=== PATIENT | female | born 1935 | race African-American/Black ===

== ENCOUNTER 2018-10-31 04:43 | Inpatient (IN) ==
[2018-10-31 05:28] LABS: VBG Base Excess 16.5 MEQ/L (0-4); VBG HCO3 40.6 MEQ/L (24-28); VBG PCO2 81.8 MMHG (41-51); VBG PH 7.361
[2018-10-31 05:49] LABS: Basophils % 0.4 % (0.0-0.8); Eosinophils # 0.1 10*3/uL (0.0-0.87); Eosinophils % 1.9 % (0.00-10.9); Hematocrit 37.3 VOL% (35.7-47.0); Immature Granulocytes % 0.4 %; Immature Granulocytes Absolute 0.02 #; Lymphocytes # 0.8 10*3/uL (1.4-4.0); Lymphocytes % 15.4 % (21.3-54.2); Mean Corpuscular HGB Conc 29.2 GM/DL (32-36); Mean Corpuscular Volume 91.2 FL (87-102); Mean Platelet Volume 11.4 FL (9.6-12.0); Monocytes % 5.7 % (1.7-12.7); Neutrophils % 76.2 % (38.7-73.9); Platelet Count 128 T/CUMM (130-400); Red Blood Count 4.09 MC/CUMM (3.8-5.5); Red Cell Distribution Width 16.1 % (9.3-17.3); White Blood Count 5.3 T/CUMM (4-12)
[2018-10-31 05:50] LABS: Hemoglobin 10.9 GM/DL (12.0-16.0)
[2018-10-31 05:52] LABS: Alanine Aminotransferase 16 U/L (13-56); Albumin 3.3 G/DL (3.4-5.0); Alkaline Phosphatase 72 U/L (45-117); Aspartate Amino Transferase 18 U/L (0-37); Blood Urea Nitrogen 9 MG/DL (7-18); Calcium 8.8 MG/DL (8.5-10.1); Glucose 134 MG/DL (74-106); Osmolality,Calculated 290.6 MOS/KG (273-304); Total Protein 6.9 G/DL (6.4-8.3)
[2018-10-31 05:53] LABS: Troponin I 0.074 NG/ML (0.00-0.045)
[2018-10-31] MEDS ORDERED: FUROSEMIDE 40 MG/4 ML VIAL IV STA (06:45)
[2018-10-31] MEDS ORDERED: ALBUTEROL 2.5 MG/3 ML NEB RESP TX STA (06:45)
[2018-10-31] MEDS ORDERED: ETOMIDATE 20 MG/10 ML VIAL IV ONE (06:59)
[2018-10-31] MEDS ORDERED: LEVOFLOXACIN INJ 500 MG in PREMIX 1 EACH IV STA (06:59)
[2018-10-31] MEDS ORDERED: ROCURONIUM 100 MG/10 ML VIAL IV ONE (07:00)
[2018-10-31 07:15] LABS: ABG HCO3 42.2 MMOL/L (20-26); ABG Oxygen Saturation 99.9 % (95-100); ABG PCO2 68.8 MM HG (35-48); ABG PH 7.434 (7.35-7.45); ABG TCO2 41.4 MMOL/L (23-27); Allen Test Positive; Pt O2 Delivery Device Ventilator
[2018-10-31 07:37] LABS: Apearance,Urine CLEAR (Clear); Bacteria,Urine Occasional /HPF (Few); Bilirubin,Urine Negative (Negative); Blood, Urine Negative (Negative); Glucose,Urine (UA) Negative (Negative); Ketones,Urine Negative (Negative); Nitrite,Urine Negative (Negative); Protein,Urine 100 MG/DL; RBC,Urine 4 /HPF (0-4); Squamous Epithelial Cell,Urine Occasional /HPF (0-10); Urine Color Yellow (Yellow); Urine Specific Gravity 1.015 (1.001-1.035); WBC,Urine <1 /HPF (0-6)
[2018-10-31] MEDS ORDERED: PROPOFOL 1,000 MG/100 ML BOTTLE IV ONE (07:46)
[2018-10-31] MEDS: PROPOFOL 1,000 MG/100 ML BOTTLE IV SCH ×7 (07:59→23:38)
[2018-10-31] MEDS ORDERED: MORPHINE 4 MG/1 ML VIAL IV PRN (08:23)
[2018-10-31] MEDS ORDERED: DEXTROSE 5% NACL 0.45% 1,000 ML IV SCH (08:23)
[2018-10-31] MEDS ORDERED: HYDROcod/ACETAMIN 7.5-325 MG/15 ML UDCUP PER TUBE PRN (08:23)
[2018-10-31] MEDS ORDERED: LACTULOSE 20 GM/30 ML UDCUP PER TUBE PRN (08:23)
[2018-10-31] MEDS ORDERED: ONDANSETRON 4 MG/2 ML VIAL IV PRN (08:23)
[2018-10-31] MEDS: APIXABAN 5 MG TABLET PER TUBE SCH ×2 (09:27→20:45)
[2018-10-31] MEDS: METOPROLOL TARTRATE 50 MG TABLET PER TUBE SCH ×2 (09:27→09:41)
[2018-10-31] MEDS: SACUBITRIL/VALSARTAN 49-51 MG TABLET PO SCH ×2 (09:27→20:45)
[2018-10-31] MEDS: FAMOTIDINE 20 MG/2 ML VIAL IV SCH ×2 (09:27→20:45)
[2018-10-31] MEDS: FUROSEMIDE 40 MG/4 ML VIAL IV SCH ×2 (09:27→15:49)
[2018-10-31] MEDS: ALLOPURINOL 300 MG TABLET PER TUBE SCH (09:28)
[2018-10-31 11:15] LABS: ABG Base Excess 19.4 MMOL/L (-2.5-2.5); ABG HCO3 43.7 MMOL/L (20-26); ABG Oxygen Saturation 97.4 % (95-100); ABG PCO2 47.9 MM HG (35-48); ABG PH 7.576 (7.35-7.45); ABG PO2 72.3 MM HG (80-95); ABG TCO2 39.8 MMOL/L (23-27); Pt O2 Delivery Device Ventilator
[2018-10-31] MEDS: POTASSIUM CHLORIDE 20 MEQ/15 ML UDCUP PER TUBE SCH ×3 (11:15→23:09)
[2018-10-31] MEDS: VANCOMYCIN INJ 2,000 MG in SODIUM CHLORIDE 0.9% 500 ML IV SCH ×2 (11:59→23:00)
[2018-10-31 12:36] LABS: ABG Base Excess 19.6 MMOL/L (-2.5-2.5); ABG Oxygen Saturation 99.2 % (95-100); ABG PCO2 55.1 MM HG (35-48); ABG PH 7.527 (7.35-7.45); ABG TCO2 41.2 MMOL/L (23-27); Pt O2 Delivery Device Ventilator
[2018-10-31] MEDS: ALBUTEROL/IPRATROPIUM 3 ML NEB RESP TX SCH ×2 (12:36→20:23)
[2018-10-31 16:18] LABS: ABG Base Excess 17.8 MMOL/L (-2.5-2.5); ABG Oxygen Saturation 98.6 % (95-100); ABG PCO2 57.8 MM HG (35-48); ABG PH 7.493 (7.35-7.45); ABG TCO2 39.7 MMOL/L (23-27); Pt O2 Delivery Device Ventilator
[2018-10-31] MEDS: BUDESONIDE 0.5 MG/2 ML NEB RESP TX SCH (20:23)
[2018-10-31] MEDS: METOPROLOL TARTRATE 25 MG TABLET PER TUBE SCH (20:46)
[2018-11-01] MEDS: ALBUTEROL/IPRATROPIUM 3 ML NEB RESP TX SCH ×4 (00:24→19:15)
[2018-11-01] MEDS: PROPOFOL 1,000 MG/100 ML BOTTLE IV SCH ×8 (02:20→22:46)
[2018-11-01 03:31] LABS: ABG Base Excess 16.4 MMOL/L (-2.5-2.5); ABG HCO3 40.5 MMOL/L (20-26); ABG Oxygen Saturation 98.6 % (95-100); ABG PCO2 55.8 MM HG (35-48); ABG PH 7.492 (7.35-7.45); ABG PO2 99.4 MM HG (80-95); ABG TCO2 38.2 MMOL/L (23-27); Allen Test Positive; Pt O2 Delivery Device Ventilator
[2018-11-01 04:31] LABS: Basophils % 0.7 % (0.0-0.8); Eosinophils # 0.1 10*3/uL (0.0-0.87); Eosinophils % 2.7 % (0.00-10.9); Hematocrit 33.2 VOL% (35.7-47.0); Hemoglobin 10.2 GM/DL (12.0-16.0); Immature Granulocytes % 0.5 %; Immature Granulocytes Absolute 0.02 #; Lymphocytes # 0.9 10*3/uL (1.4-4.0); Lymphocytes % 20.7 % (21.3-54.2); Mean Corpuscular HGB Conc 30.7 GM/DL (32-36); Mean Corpuscular Volume 86.5 FL (87-102); Mean Platelet Volume 10.8 FL (9.6-12.0); Monocytes % 5.6 % (1.7-12.7); Neutrophils % 69.8 % (38.7-73.9); Platelet Count 121 T/CUMM (130-400); Red Blood Count 3.84 MC/CUMM (3.8-5.5); White Blood Count 4.1 T/CUMM (4-12)
[2018-11-01 04:53] LABS: Calcium 8.7 MG/DL (8.5-10.1); Osmolality,Calculated 286.7 MOS/KG (273-304)
[2018-11-01 04:54] LABS: Troponin I 0.177 NG/ML (0.00-0.045)
[2018-11-01] MEDS: POTASSIUM CHLORIDE 20 MEQ/15 ML UDCUP PER TUBE SCH ×4 (05:25→23:18)
[2018-11-01] MEDS: BUDESONIDE 0.5 MG/2 ML NEB RESP TX SCH ×2 (07:38→19:15)
[2018-11-01] MEDS: FUROSEMIDE 40 MG/4 ML VIAL IV SCH ×2 (09:19→16:58)
[2018-11-01] MEDS: FAMOTIDINE 20 MG/2 ML VIAL IV SCH ×2 (09:24→20:23)
[2018-11-01] MEDS: METOPROLOL TARTRATE 25 MG TABLET PER TUBE SCH ×2 (09:25→20:22)
[2018-11-01] MEDS: APIXABAN 5 MG TABLET PER TUBE SCH ×2 (09:25→20:22)
[2018-11-01] MEDS: ALLOPURINOL 300 MG TABLET PER TUBE SCH (09:25)
[2018-11-01] MEDS: LEVOFLOXACIN INJ 750 MG in PREMIX 1 EACH IV SCH (09:29)
[2018-11-01] MEDS: SACUBITRIL/VALSARTAN 49-51 MG TABLET PO SCH ×2 (09:30→20:22)
[2018-11-01] MEDS: VANCOMYCIN INJ 2,000 MG in SODIUM CHLORIDE 0.9% 500 ML IV SCH ×2 (11:08→23:19)
[2018-11-02] MEDS: ALBUTEROL/IPRATROPIUM 3 ML NEB RESP TX SCH ×4 (01:38→19:10)
[2018-11-02] MEDS: PROPOFOL 1,000 MG/100 ML BOTTLE IV SCH ×7 (01:40→20:25)
[2018-11-02 02:55] LABS: Basophils % 0.2 % (0.0-0.8); Eosinophils # 0.2 10*3/uL (0.0-0.87); Eosinophils % 4.2 % (0.00-10.9); Hematocrit 33.3 VOL% (35.7-47.0); Hemoglobin 10.2 GM/DL (12.0-16.0); Immature Granulocytes % 0.6 %; Immature Granulocytes Absolute 0.03 #; Lymphocytes # 0.7 10*3/uL (1.4-4.0); Lymphocytes % 14.7 % (21.3-54.2); Mean Corpuscular HGB Conc 30.6 GM/DL (32-36); Mean Platelet Volume 11.2 FL (9.6-12.0); Monocytes % 5.7 % (1.7-12.7); Neutrophils % 74.6 % (38.7-73.9); Platelet Count 131 T/CUMM (130-400); Red Blood Count 3.87 MC/CUMM (3.8-5.5); Red Cell Distribution Width 16.2 % (9.3-17.3); White Blood Count 4.8 T/CUMM (4-12)
[2018-11-02 03:10] LABS: Osmolality,Calculated 286.8 MOS/KG (273-304)
[2018-11-02 03:38] LABS: ABG Base Excess 12.5 MMOL/L (-2.5-2.5); ABG HCO3 36.3 MMOL/L (20-26); ABG Oxygen Saturation 97.8 % (95-100); ABG PCO2 49.5 MM HG (35-48); ABG PO2 89.8 MM HG (80-95); ABG TCO2 33.8 MMOL/L (23-27); Allen Test Positive; Pt O2 Delivery Device Ventilator
[2018-11-02] MEDS: POTASSIUM CHLORIDE 20 MEQ/15 ML UDCUP PER TUBE SCH ×3 (06:00→18:15)
[2018-11-02] MEDS: APIXABAN 5 MG TABLET PER TUBE SCH ×2 (08:55→21:34)
[2018-11-02] MEDS: METOPROLOL TARTRATE 25 MG TABLET PER TUBE SCH ×2 (08:55→21:35)
[2018-11-02] MEDS: LEVOFLOXACIN INJ 750 MG in PREMIX 1 EACH IV SCH (08:55)
[2018-11-02] MEDS: FUROSEMIDE 40 MG/4 ML VIAL IV SCH ×2 (08:55→16:11)
[2018-11-02] MEDS: SACUBITRIL/VALSARTAN 49-51 MG TABLET PO SCH ×2 (08:55→21:34)
[2018-11-02] MEDS: FAMOTIDINE 20 MG/2 ML VIAL IV SCH ×2 (08:56→21:35)
[2018-11-02] MEDS: ALLOPURINOL 300 MG TABLET PER TUBE SCH (08:56)
[2018-11-02] MEDS ORDERED: DEXTROSE 50% 25 GM/50 ML SYRINGE IV PRN (11:30)
[2018-11-02] MEDS ORDERED: GLUCAGON 1 MG VIAL IM PRN (11:30)
[2018-11-02] MEDS: INSULIN REGULAR 100 UNIT/ML SUBCUT SCH ×2 (11:41→18:29)
[2018-11-02] MEDS: BUDESONIDE 0.5 MG/2 ML NEB RESP TX SCH ×2 (13:00→19:10)
[2018-11-02] MEDS: VANCOMYCIN INJ 2,000 MG in SODIUM CHLORIDE 0.9% 500 ML IV SCH (13:24)
[2018-11-02] MEDS ORDERED: NIFEdipine 10 MG CAPSULE PO PRN (15:29)
[2018-11-02] MEDS ORDERED: cloNIDine 0.3 MG/24 HR PATCH TRANSDERM SCH (15:30)
[2018-11-03] MEDS: POTASSIUM CHLORIDE 20 MEQ/15 ML UDCUP PER TUBE SCH ×8 (00:02→23:12)
[2018-11-03] MEDS: INSULIN REGULAR 100 UNIT/ML SUBCUT SCH ×5 (00:35→23:12)
[2018-11-03] MEDS: ALBUTEROL/IPRATROPIUM 3 ML NEB RESP TX SCH ×4 (01:15→19:29)
[2018-11-03] MEDS: PROPOFOL 1,000 MG/100 ML BOTTLE IV SCH ×8 (03:45→22:59)
[2018-11-03 04:26] LABS: ABG Base Excess 10.8 MMOL/L (-2.5-2.5); ABG HCO3 33.6 MMOL/L (20-26); ABG Oxygen Saturation 96.7 % (95-100); ABG PCO2 37.4 MM HG (35-48); ABG PH 7.571 (7.35-7.45); ABG PO2 83.9 MM HG (80-95); ABG TCO2 34.7 MMOL/L (23-27); Allen Test Positive; Pt O2 Delivery Device Ventilator
[2018-11-03 05:31] LABS: Basophils % 0.2 % (0.0-0.8); Eosinophils # 0.2 10*3/uL (0.0-0.87); Eosinophils % 3.1 % (0.00-10.9); Hematocrit 31.2 VOL% (35.7-47.0); Hemoglobin 10.2 GM/DL (12.0-16.0); Immature Granulocytes % 0.6 %; Immature Granulocytes Absolute 0.03 #; Lymphocytes # 1.1 10*3/uL (1.4-4.0); Lymphocytes % 20.6 % (21.3-54.2); Mean Corpuscular HGB Conc 32.7 GM/DL (32-36); Mean Corpuscular Volume 82.8 FL (87-102); Mean Platelet Volume 11.5 FL (9.6-12.0); Monocytes % 6.6 % (1.7-12.7); Neutrophils % 68.9 % (38.7-73.9); Platelet Count 133 T/CUMM (130-400); Red Blood Count 3.77 MC/CUMM (3.8-5.5); Red Cell Distribution Width 15.5 % (9.3-17.3); White Blood Count 5.2 T/CUMM (4-12)
[2018-11-03 05:45] LABS: Calcium 8.5 MG/DL (8.5-10.1); Osmolality,Calculated 286.8 MOS/KG (273-304)
[2018-11-03 05:50] LABS: Prealbumin 9.5 MG/DL (20-40)
[2018-11-03] MEDS: BUDESONIDE 0.5 MG/2 ML NEB RESP TX SCH ×2 (07:06→19:29)
[2018-11-03] MEDS: APIXABAN 5 MG TABLET PER TUBE SCH ×2 (08:40→20:11)
[2018-11-03] MEDS: SACUBITRIL/VALSARTAN 49-51 MG TABLET PO SCH ×2 (08:40→20:11)
[2018-11-03] MEDS: METOPROLOL TARTRATE 25 MG TABLET PER TUBE SCH ×2 (08:40→20:11)
[2018-11-03] MEDS: ALLOPURINOL 300 MG TABLET PER TUBE SCH (08:40)
[2018-11-03] MEDS: FUROSEMIDE 40 MG/4 ML VIAL IV SCH ×2 (08:41→17:22)
[2018-11-03] MEDS: LEVOFLOXACIN INJ 750 MG in PREMIX 1 EACH IV SCH (08:45)
[2018-11-03] MEDS: FAMOTIDINE 20 MG/2 ML VIAL IV SCH ×2 (09:40→20:11)
[2018-11-04] MEDS: ALBUTEROL/IPRATROPIUM 3 ML NEB RESP TX SCH ×4 (00:52→19:05)
[2018-11-04] MEDS: PROPOFOL 1,000 MG/100 ML BOTTLE IV SCH ×7 (02:33→23:21)
[2018-11-04 03:54] LABS: Calcium 8.3 MG/DL (8.5-10.1); Osmolality,Calculated 288.8 MOS/KG (273-304)
[2018-11-04 04:20] LABS: Basophils % 0.4 % (0.0-0.8); Eosinophils # 0.3 10*3/uL (0.0-0.87); Eosinophils % 5.4 % (0.00-10.9); Hematocrit 32.8 VOL% (35.7-47.0); Hemoglobin 10.4 GM/DL (12.0-16.0); Immature Granulocytes % 0.6 %; Immature Granulocytes Absolute 0.03 #; Lymphocytes # 0.8 10*3/uL (1.4-4.0); Lymphocytes % 16.5 % (21.3-54.2); Mean Corpuscular HGB Conc 31.7 GM/DL (32-36); Mean Corpuscular Volume 84.5 FL (87-102); Mean Platelet Volume 11.5 FL (9.6-12.0); Monocytes % 8.6 % (1.7-12.7); Neutrophils % 68.5 % (38.7-73.9); Platelet Count 129 T/CUMM (130-400); Red Blood Count 3.88 MC/CUMM (3.8-5.5); Red Cell Distribution Width 15.8 % (9.3-17.3)
[2018-11-04 04:35] LABS: Allen Test Positive; Pt O2 Delivery Device Ventilator
[2018-11-04 04:36] LABS: ABG Base Excess 7.6 MMOL/L (-2.5-2.5); ABG HCO3 31.3 MMOL/L (20-26); ABG Oxygen Saturation 96.6 % (95-100); ABG PCO2 52.1 MM HG (35-48); ABG PH 7.417 (7.35-7.45); ABG PO2 85.2 MM HG (80-95); ABG TCO2 30.1 MMOL/L (23-27)
[2018-11-04] MEDS: INSULIN REGULAR 100 UNIT/ML SUBCUT SCH ×3 (05:20→17:51)
[2018-11-04] MEDS: POTASSIUM CHLORIDE 20 MEQ/15 ML UDCUP PER TUBE SCH ×3 (05:29→17:07)
[2018-11-04] MEDS: LEVOFLOXACIN 750 MG TABLET PER TUBE SCH (08:12)
[2018-11-04] MEDS: SACUBITRIL/VALSARTAN 49-51 MG TABLET PO SCH ×2 (08:12→21:00)
[2018-11-04] MEDS: METOPROLOL TARTRATE 25 MG TABLET PER TUBE SCH ×2 (08:13→20:54)
[2018-11-04] MEDS: APIXABAN 5 MG TABLET PER TUBE SCH ×2 (08:13→21:00)
[2018-11-04] MEDS: ALLOPURINOL 300 MG TABLET PER TUBE SCH (08:13)
[2018-11-04] MEDS: FAMOTIDINE 20 MG/2 ML VIAL IV SCH ×2 (08:14→22:09)
[2018-11-04] MEDS: FUROSEMIDE 40 MG/4 ML VIAL IV SCH ×2 (08:19→17:07)
[2018-11-04] MEDS: BUDESONIDE 0.5 MG/2 ML NEB RESP TX SCH ×2 (08:23→19:05)
[2018-11-04] MEDS ORDERED: VANCOMYCIN INJ 1,000 MG in SODIUM CHLORIDE 0.9% 250 ML IV PRN (11:38)
[2018-11-04] MEDS ORDERED: VANCOMYCIN INJ 1,000 MG in SODIUM CHLORIDE 0.9% 250 ML IV ONE (12:00)
[2018-11-04] MEDS ORDERED: NOREPINEPHRINE 16 MG in SODIUM CHLORIDE 0.9% 234 ML IV PRN (19:49)
[2018-11-05] MEDS: INSULIN REGULAR 100 UNIT/ML SUBCUT SCH ×4 (00:27→18:33)
[2018-11-05] MEDS: ALBUTEROL/IPRATROPIUM 3 ML NEB RESP TX SCH ×4 (00:38→20:21)
[2018-11-05] MEDS: POTASSIUM CHLORIDE 20 MEQ/15 ML UDCUP PER TUBE SCH ×4 (00:47→19:23)
[2018-11-05] MEDS: PROPOFOL 1,000 MG/100 ML BOTTLE IV SCH ×5 (03:56→21:42)
[2018-11-05 04:09] LABS: ABG Base Excess 6.3 MMOL/L (-2.5-2.5); ABG HCO3 30.2 MMOL/L (20-26); ABG Oxygen Saturation 97.8 % (95-100); ABG PCO2 55.1 MM HG (35-48); ABG PH 7.385 (7.35-7.45); ABG TCO2 29.5 MMOL/L (23-27); Allen Test Positive; Pt O2 Delivery Device Ventilator
[2018-11-05 04:39] LABS: Basophils % 0.3 % (0.0-0.8); Eosinophils # 0.2 10*3/uL (0.0-0.87); Eosinophils % 3.1 % (0.00-10.9); Hematocrit 34.9 VOL% (35.7-47.0); Hemoglobin 10.9 GM/DL (12.0-16.0); Immature Granulocytes % 0.3 %; Immature Granulocytes Absolute 0.02 #; Lymphocytes # 0.7 10*3/uL (1.4-4.0); Lymphocytes % 11.4 % (21.3-54.2); Mean Corpuscular HGB Conc 31.2 GM/DL (32-36); Mean Corpuscular Volume 84.1 FL (87-102); Mean Platelet Volume 11.1 FL (9.6-12.0); Monocytes % 7.5 % (1.7-12.7); Neutrophils % 77.4 % (38.7-73.9); Platelet Count 139 T/CUMM (130-400); Red Blood Count 4.15 MC/CUMM (3.8-5.5); Red Cell Distribution Width 15.8 % (9.3-17.3); White Blood Count 5.9 T/CUMM (4-12)
[2018-11-05 05:03] LABS: Calcium 8.2 MG/DL (8.5-10.1)
[2018-11-05] MEDS ORDERED: VANCOMYCIN INJ 2,000 MG in SODIUM CHLORIDE 0.9% 500 ML IV PRN (06:23)
[2018-11-05] MEDS: BUDESONIDE 0.5 MG/2 ML NEB RESP TX SCH ×2 (07:09→20:21)
[2018-11-05] MEDS: ALLOPURINOL 300 MG TABLET PER TUBE SCH (09:29)
[2018-11-05] MEDS: SACUBITRIL/VALSARTAN 49-51 MG TABLET PO SCH ×2 (09:29→20:26)
[2018-11-05] MEDS: LEVOFLOXACIN 750 MG TABLET PER TUBE SCH (09:30)
[2018-11-05] MEDS: FUROSEMIDE 40 MG/4 ML VIAL IV SCH ×2 (09:30→18:25)
[2018-11-05] MEDS: APIXABAN 5 MG TABLET PER TUBE SCH ×2 (09:30→20:27)
[2018-11-05] MEDS: METOPROLOL TARTRATE 25 MG TABLET PER TUBE SCH ×2 (09:30→20:27)
[2018-11-05] MEDS: FAMOTIDINE 20 MG/2 ML VIAL IV SCH ×2 (09:40→21:47)
[2018-11-05] MEDS ORDERED: VANCOMYCIN INJ 2,000 MG in SODIUM CHLORIDE 0.9% 500 ML IV ONE (10:00)
[2018-11-05] MEDS ORDERED: RACEPINEPHRINE 0.5 ML NEB RESP TX STA (14:47)
[2018-11-05] MEDS ORDERED: methylPREDNISolone SOD SUC 125 MG/2 ML VIAL IV STA (15:01)
[2018-11-05 15:02] LABS: ABG HCO3 36.3 MMOL/L (20-26); ABG PO2 89.9 MM HG (80-95); ABG TCO2 39.6 MMOL/L (23-27); Allen Test Positive
[2018-11-05] MEDS ORDERED: methylPREDNISolone SOD SUC 125 MG/2 ML VIAL ONE (15:03)
[2018-11-05 15:04] LABS: ABG PH 7.147 (7.35-7.45)
[2018-11-05 15:05] LABS: ABG PCO2 107.3 MM HG (35-48)
[2018-11-05] MEDS ORDERED: PROPOFOL 200 MG/20 ML VIAL IV ONE (15:35)
[2018-11-05] MEDS ORDERED: VECURONIUM 10 MG VIAL IV ONE ×2 (15:35→15:38)
[2018-11-05 17:34] LABS: ABG HCO3 32.3 MMOL/L (20-26); ABG Oxygen Saturation 93.5 % (95-100); ABG PCO2 54.7 MM HG (35-48); ABG PH 7.389 (7.35-7.45); ABG PO2 67.3 MM HG (80-95); Pt O2 Delivery Device Ventilator
[2018-11-06] MEDS: ALBUTEROL/IPRATROPIUM 3 ML NEB RESP TX SCH ×4 (00:27→19:20)
[2018-11-06] MEDS: INSULIN REGULAR 100 UNIT/ML SUBCUT SCH ×4 (00:54→18:00)
[2018-11-06] MEDS: POTASSIUM CHLORIDE 20 MEQ/15 ML UDCUP PER TUBE SCH ×4 (00:55→18:01)
[2018-11-06] MEDS: PROPOFOL 1,000 MG/100 ML BOTTLE IV SCH ×3 (02:31→16:39)
[2018-11-06 04:11] LABS: ABG Base Excess 5.3 MMOL/L (-2.5-2.5); ABG HCO3 28.9 MMOL/L (20-26); ABG Oxygen Saturation 97.5 % (95-100); ABG PCO2 38.3 MM HG (35-48); ABG PH 7.495 (7.35-7.45); ABG PO2 95.1 MM HG (80-95); Allen Test Positive; Pt O2 Delivery Device Ventilator
[2018-11-06 05:03] LABS: Hematocrit 33.4 VOL% (35.7-47.0); Hemoglobin 10.8 GM/DL (12.0-16.0); Immature Granulocytes % 0.3 %; Immature Granulocytes Absolute 0.01 #; Lymphocytes # 0.4 10*3/uL (1.4-4.0); Lymphocytes % 11.7 % (21.3-54.2); Mean Corpuscular HGB Conc 32.3 GM/DL (32-36); Mean Corpuscular Volume 82.3 FL (87-102); Monocytes % 2.1 % (1.7-12.7); Neutrophils % 85.9 % (38.7-73.9); Platelet Count 162 T/CUMM (130-400); Red Blood Count 4.06 MC/CUMM (3.8-5.5); Red Cell Distribution Width 15.5 % (9.3-17.3); White Blood Count 3.3 T/CUMM (4-12)
[2018-11-06 05:31] LABS: Calcium 8.8 MG/DL (8.5-10.1)
[2018-11-06] MEDS: BUDESONIDE 0.5 MG/2 ML NEB RESP TX SCH ×2 (08:29→19:20)
[2018-11-06] MEDS: LEVOFLOXACIN 750 MG TABLET PER TUBE SCH (08:30)
[2018-11-06] MEDS: APIXABAN 5 MG TABLET PER TUBE SCH ×2 (08:30→20:49)
[2018-11-06] MEDS: ALLOPURINOL 300 MG TABLET PER TUBE SCH (08:30)
[2018-11-06] MEDS: SACUBITRIL/VALSARTAN 49-51 MG TABLET PO SCH ×2 (08:30→20:50)
[2018-11-06] MEDS: FAMOTIDINE 20 MG/2 ML VIAL IV SCH ×2 (08:31→20:43)
[2018-11-06] MEDS: METOPROLOL TARTRATE 25 MG TABLET PER TUBE SCH ×2 (08:31→20:48)
[2018-11-06] MEDS: FUROSEMIDE 40 MG/4 ML VIAL IV SCH ×2 (08:35→17:30)
[2018-11-06] MEDS ORDERED: methylPREDNISolone SOD SUC 125 MG/2 ML VIAL IV ONE (09:35)
[2018-11-06] MEDS: GLYCOPYRROLATE 0.4 MG/2 ML VIAL IV SCH ×2 (10:51→20:50)
[2018-11-07] MEDS: INSULIN REGULAR 100 UNIT/ML SUBCUT SCH ×5 (00:47→23:22)
[2018-11-07] MEDS: POTASSIUM CHLORIDE 20 MEQ/15 ML UDCUP PER TUBE SCH ×5 (00:52→23:22)
[2018-11-07] MEDS: ALBUTEROL/IPRATROPIUM 3 ML NEB RESP TX SCH ×4 (01:21→19:19)
[2018-11-07] MEDS: PROPOFOL 1,000 MG/100 ML BOTTLE IV SCH ×4 (01:33→22:43)
[2018-11-07 03:32] LABS: ABG Base Excess 6.2 MMOL/L (-2.5-2.5); ABG Oxygen Saturation 96.7 % (95-100); ABG PH 7.407 (7.35-7.45); ABG PO2 84.1 MM HG (80-95); ABG TCO2 28.8 MMOL/L (23-27); Allen Test Positive; Pt O2 Delivery Device Ventilator
[2018-11-07 04:41] LABS: Calcium 9.1 MG/DL (8.5-10.1); Osmolality,Calculated 295.8 MOS/KG (273-304)
[2018-11-07 05:28] LABS: Prealbumin 16.5 MG/DL (20-40)
[2018-11-07] MEDS: BUDESONIDE 0.5 MG/2 ML NEB RESP TX SCH ×2 (07:35→19:19)
[2018-11-07] MEDS ORDERED: methylPREDNISolone SOD SUC 125 MG/2 ML VIAL IV ONE (09:00)
[2018-11-07] MEDS ORDERED: SODIUM CHLORIDE 0.45% 500 ML IV SCH (10:00)
[2018-11-07] MEDS: FUROSEMIDE 40 MG/4 ML VIAL IV SCH (10:22)
[2018-11-07] MEDS: SACUBITRIL/VALSARTAN 49-51 MG TABLET PO SCH ×2 (10:41→20:22)
[2018-11-07] MEDS: METOPROLOL TARTRATE 25 MG TABLET PER TUBE SCH ×2 (10:41→20:22)
[2018-11-07] MEDS: ALLOPURINOL 300 MG TABLET PER TUBE SCH (10:41)
[2018-11-07] MEDS: LEVOFLOXACIN 750 MG TABLET PER TUBE SCH (10:42)
[2018-11-07] MEDS: APIXABAN 5 MG TABLET PER TUBE SCH ×2 (10:43→20:22)
[2018-11-07] MEDS: FAMOTIDINE 20 MG/2 ML VIAL IV SCH ×2 (10:43→20:22)
[2018-11-07] MEDS: GLYCOPYRROLATE 0.4 MG/2 ML VIAL IV SCH ×2 (10:46→20:22)
[2018-11-07] MEDS: methylPREDNISolone SOD SUC 40 MG/1 ML VIAL IV SCH ×2 (10:48→18:16)
[2018-11-07] MEDS ORDERED: VANCOMYCIN INJ 2,000 MG in SODIUM CHLORIDE 0.9% 500 ML IV ONE (14:00)
[2018-11-08] MEDS: methylPREDNISolone SOD SUC 40 MG/1 ML VIAL IV SCH ×3 (01:27→17:06)
[2018-11-08] MEDS: ALBUTEROL/IPRATROPIUM 3 ML NEB RESP TX SCH ×4 (02:00→19:40)
[2018-11-08 03:20] LABS: Calcium 9.1 MG/DL (8.5-10.1); Osmolality,Calculated 298.8 MOS/KG (273-304)
[2018-11-08 03:23] LABS: Hematocrit 34.3 VOL% (35.7-47.0); Hemoglobin 10.6 GM/DL (12.0-16.0); Immature Granulocytes % 0.4 %; Immature Granulocytes Absolute 0.02 #; Lymphocytes # 0.5 10*3/uL (1.4-4.0); Lymphocytes % 10.3 % (21.3-54.2); Mean Corpuscular HGB Conc 30.9 GM/DL (32-36); Mean Corpuscular Volume 85.1 FL (87-102); Mean Platelet Volume 11.4 FL (9.6-12.0); Monocytes % 4.6 % (1.7-12.7); Neutrophils % 84.7 % (38.7-73.9); Platelet Count 194 T/CUMM (130-400); Red Blood Count 4.03 MC/CUMM (3.8-5.5); Red Cell Distribution Width 15.6 % (9.3-17.3); White Blood Count 4.6 T/CUMM (4-12)
[2018-11-08 03:27] LABS: ABG Base Excess 4.4 MMOL/L (-2.5-2.5); ABG HCO3 28.3 MMOL/L (20-26); ABG Oxygen Saturation 97.7 % (95-100); ABG PCO2 55.7 MM HG (35-48); ABG PH 7.357 (7.35-7.45); ABG TCO2 28.1 MMOL/L (23-27); Allen Test Positive; Pt O2 Delivery Device Ventilator
[2018-11-08] MEDS: PROPOFOL 1,000 MG/100 ML BOTTLE IV SCH ×3 (04:31→18:20)
[2018-11-08] MEDS: INSULIN REGULAR 100 UNIT/ML SUBCUT SCH ×4 (05:30→23:58)
[2018-11-08] MEDS: POTASSIUM CHLORIDE 20 MEQ/15 ML UDCUP PER TUBE SCH ×2 (05:30→21:02)
[2018-11-08] MEDS: BUDESONIDE 0.5 MG/2 ML NEB RESP TX SCH ×2 (07:04→19:40)
[2018-11-08] MEDS: LACTULOSE 20 GM/30 ML UDCUP PO SCH ×2 (10:18→15:45)
[2018-11-08] MEDS: ALLOPURINOL 300 MG TABLET PER TUBE SCH (10:19)
[2018-11-08] MEDS: APIXABAN 5 MG TABLET PER TUBE SCH ×2 (10:19→21:00)
[2018-11-08] MEDS: SACUBITRIL/VALSARTAN 49-51 MG TABLET PO SCH ×2 (10:19→21:00)
[2018-11-08] MEDS: FAMOTIDINE 20 MG/2 ML VIAL IV SCH ×2 (10:20→21:02)
[2018-11-08] MEDS: METOPROLOL TARTRATE 25 MG TABLET PER TUBE SCH ×2 (10:20→21:01)
[2018-11-08] MEDS: LEVOFLOXACIN 750 MG TABLET PER TUBE SCH (10:20)
[2018-11-09] MEDS: ALBUTEROL/IPRATROPIUM 3 ML NEB RESP TX SCH ×4 (00:10→20:08)
[2018-11-09] MEDS: PROPOFOL 1,000 MG/100 ML BOTTLE IV SCH ×3 (02:03→17:21)
[2018-11-09] MEDS: methylPREDNISolone SOD SUC 40 MG/1 ML VIAL IV SCH ×3 (02:04→18:45)
[2018-11-09 03:37] LABS: Hematocrit 32.8 VOL% (35.7-47.0); Hemoglobin 10.2 GM/DL (12.0-16.0); Immature Granulocytes % 0.7 %; Immature Granulocytes Absolute 0.03 #; Lymphocytes # 0.5 10*3/uL (1.4-4.0); Lymphocytes % 10.9 % (21.3-54.2); Mean Corpuscular HGB Conc 31.1 GM/DL (32-36); Mean Corpuscular Volume 84.8 FL (87-102); Mean Platelet Volume 11.2 FL (9.6-12.0); Neutrophils % 79.4 % (38.7-73.9); Platelet Count 186 T/CUMM (130-400); Red Blood Count 3.87 MC/CUMM (3.8-5.5); Red Cell Distribution Width 15.5 % (9.3-17.3); White Blood Count 4.1 T/CUMM (4-12)
[2018-11-09 03:46] LABS: Calcium 8.9 MG/DL (8.5-10.1); Osmolality,Calculated 306.4 MOS/KG (273-304)
[2018-11-09 04:28] LABS: ABG Base Excess 3.2 MMOL/L (-2.5-2.5); ABG HCO3 27.3 MMOL/L (20-26); ABG Oxygen Saturation 97.2 % (95-100); ABG PCO2 52.4 MM HG (35-48); ABG PH 7.362 (7.35-7.45); ABG TCO2 26.7 MMOL/L (23-27); Allen Test Positive; Pt O2 Delivery Device Ventilator
[2018-11-09] MEDS: INSULIN REGULAR 100 UNIT/ML SUBCUT SCH ×3 (05:48→18:45)
[2018-11-09] MEDS: BUDESONIDE 0.5 MG/2 ML NEB RESP TX SCH ×2 (07:43→20:08)
[2018-11-09] MEDS: ALLOPURINOL 300 MG TABLET PER TUBE SCH (10:09)
[2018-11-09] MEDS: SACUBITRIL/VALSARTAN 49-51 MG TABLET PO SCH ×2 (10:09→21:21)
[2018-11-09] MEDS: LEVOFLOXACIN 750 MG TABLET PER TUBE SCH (10:09)
[2018-11-09] MEDS: METOPROLOL TARTRATE 25 MG TABLET PER TUBE SCH ×2 (10:10→21:21)
[2018-11-09] MEDS: APIXABAN 5 MG TABLET PER TUBE SCH ×2 (10:10→21:21)
[2018-11-09] MEDS: POTASSIUM CHLORIDE 20 MEQ/15 ML UDCUP PER TUBE SCH (10:10)
[2018-11-09] MEDS: FAMOTIDINE 20 MG/2 ML VIAL IV SCH ×2 (10:11→21:19)
[2018-11-09] MEDS ORDERED: VANCOMYCIN INJ 2,000 MG in SODIUM CHLORIDE 0.9% 500 ML IV ONE (14:30)
[2018-11-10] MEDS: ALBUTEROL/IPRATROPIUM 3 ML NEB RESP TX SCH ×4 (00:08→19:16)
[2018-11-10] MEDS: methylPREDNISolone SOD SUC 40 MG/1 ML VIAL IV SCH ×3 (00:37→17:23)
[2018-11-10] MEDS: INSULIN REGULAR 100 UNIT/ML SUBCUT SCH ×4 (00:39→17:24)
[2018-11-10] MEDS: PROPOFOL 1,000 MG/100 ML BOTTLE IV SCH ×3 (01:35→23:22)
[2018-11-10 02:51] LABS: ABG Base Excess 4.6 MMOL/L (-2.5-2.5); ABG HCO3 28.5 MMOL/L (20-26); ABG Oxygen Saturation 96.9 % (95-100); ABG PCO2 53.3 MM HG (35-48); ABG PH 7.374 (7.35-7.45); ABG TCO2 27.7 MMOL/L (23-27); Allen Test Positive; Pt O2 Delivery Device Ventilator
[2018-11-10 04:46] LABS: Hematocrit 34.7 VOL% (35.7-47.0); Hemoglobin 11.2 GM/DL (12.0-16.0); Immature Granulocytes % 0.4 %; Immature Granulocytes Absolute 0.02 #; Lymphocytes # 0.4 10*3/uL (1.4-4.0); Lymphocytes % 8.6 % (21.3-54.2); Mean Corpuscular HGB Conc 32.3 GM/DL (32-36); Mean Corpuscular Volume 82.6 FL (87-102); Monocytes % 5.8 % (1.7-12.7); Neutrophils % 85.2 % (38.7-73.9); Platelet Count 213 T/CUMM (130-400); White Blood Count 4.6 T/CUMM (4-12)
[2018-11-10 04:52] LABS: Calcium 9.3 MG/DL (8.5-10.1); Osmolality,Calculated 305.4 MOS/KG (273-304)
[2018-11-10] MEDS: BUDESONIDE 0.5 MG/2 ML NEB RESP TX SCH ×2 (06:41→19:16)
[2018-11-10] MEDS: FAMOTIDINE 20 MG/2 ML VIAL IV SCH ×2 (09:01→21:17)
[2018-11-10] MEDS: METOPROLOL TARTRATE 25 MG TABLET PER TUBE SCH ×2 (09:10→21:19)
[2018-11-10] MEDS: ALLOPURINOL 300 MG TABLET PER TUBE SCH (09:10)
[2018-11-10] MEDS: APIXABAN 5 MG TABLET PER TUBE SCH ×2 (09:10→21:19)
[2018-11-10] MEDS: SACUBITRIL/VALSARTAN 49-51 MG TABLET PO SCH ×2 (09:10→21:19)
[2018-11-10] MEDS: LEVOFLOXACIN 750 MG TABLET PER TUBE SCH (09:10)
[2018-11-10] MEDS: FUROSEMIDE 40 MG TABLET PO SCH (16:57)
[2018-11-11] MEDS: ALBUTEROL/IPRATROPIUM 3 ML NEB RESP TX SCH ×4 (00:01→19:55)
[2018-11-11] MEDS: methylPREDNISolone SOD SUC 40 MG/1 ML VIAL IV SCH ×3 (00:55→17:19)
[2018-11-11] MEDS: INSULIN REGULAR 100 UNIT/ML SUBCUT SCH ×4 (00:58→17:19)
[2018-11-11 03:25] LABS: ABG Base Excess 6.1 MMOL/L (-2.5-2.5); ABG Oxygen Saturation 97.7 % (95-100); ABG PCO2 50.1 MM HG (35-48); ABG PH 7.412 (7.35-7.45); ABG PO2 92.7 MM HG (80-95); ABG TCO2 28.5 MMOL/L (23-27); Allen Test Positive; Pt O2 Delivery Device Ventilator
[2018-11-11] MEDS: PROPOFOL 1,000 MG/100 ML BOTTLE IV SCH ×3 (05:21→18:00)
[2018-11-11 05:29] LABS: Calcium 9.1 MG/DL (8.5-10.1); Osmolality,Calculated 305.7 MOS/KG (273-304)
[2018-11-11] MEDS: BUDESONIDE 0.5 MG/2 ML NEB RESP TX SCH ×2 (07:17→19:55)
[2018-11-11] MEDS: METOPROLOL TARTRATE 25 MG TABLET PER TUBE SCH ×2 (08:49→21:27)
[2018-11-11] MEDS: LEVOFLOXACIN 750 MG TABLET PER TUBE SCH (09:43)
[2018-11-11] MEDS: FUROSEMIDE 40 MG TABLET PO SCH ×2 (09:43→16:30)
[2018-11-11] MEDS: SACUBITRIL/VALSARTAN 49-51 MG TABLET PO SCH ×2 (09:44→21:27)
[2018-11-11] MEDS: VANCOMYCIN INJ 2,000 MG in SODIUM CHLORIDE 0.9% 500 ML IV SCH (09:44)
[2018-11-11] MEDS: ALLOPURINOL 300 MG TABLET PER TUBE SCH (09:44)
[2018-11-11] MEDS: FAMOTIDINE 20 MG/2 ML VIAL IV SCH ×2 (09:44→21:27)
[2018-11-12] MEDS: INSULIN REGULAR 100 UNIT/ML SUBCUT SCH ×4 (01:17→17:05)
[2018-11-12] MEDS: methylPREDNISolone SOD SUC 40 MG/1 ML VIAL IV SCH ×3 (01:18→17:05)
[2018-11-12] MEDS: PROPOFOL 1,000 MG/100 ML BOTTLE IV SCH ×3 (03:38→14:00)
[2018-11-12 04:20] LABS: ABG Base Excess 6.7 MMOL/L (-2.5-2.5); ABG Oxygen Saturation 96.4 % (95-100); ABG PCO2 48.7 MM HG (35-48); ABG PH 7.435 (7.35-7.45); ABG PO2 85.8 MM HG (80-95); ABG TCO2 33.5 MMOL/L (23-27); Allen Test Positive; Pt O2 Delivery Device Ventilator
[2018-11-12 04:41] LABS: Hematocrit 33.1 VOL% (35.7-47.0); Hemoglobin 10.7 GM/DL (12.0-16.0); Immature Granulocytes % 0.4 %; Immature Granulocytes Absolute 0.02 #; Lymphocytes # 0.4 10*3/uL (1.4-4.0); Lymphocytes % 7.6 % (21.3-54.2); Mean Corpuscular HGB Conc 32.3 GM/DL (32-36); Mean Corpuscular Volume 82.8 FL (87-102); Mean Platelet Volume 10.5 FL (9.6-12.0); Platelet Count 197 T/CUMM (130-400); Red Cell Distribution Width 14.8 % (9.3-17.3); White Blood Count 5.4 T/CUMM (4-12)
[2018-11-12 04:51] LABS: Calcium 8.8 MG/DL (8.5-10.1); Osmolality,Calculated 308.6 MOS/KG (273-304)
[2018-11-12] MEDS: BUDESONIDE 0.5 MG/2 ML NEB RESP TX SCH ×2 (07:41→19:20)
[2018-11-12] MEDS: ALBUTEROL/IPRATROPIUM 3 ML NEB RESP TX SCH ×4 (07:41→19:20)
[2018-11-12] MEDS: FAMOTIDINE 20 MG/2 ML VIAL IV SCH ×2 (09:10→21:26)
[2018-11-12] MEDS: ALLOPURINOL 300 MG TABLET PER TUBE SCH (09:10)
[2018-11-12] MEDS: SACUBITRIL/VALSARTAN 49-51 MG TABLET PO SCH ×2 (09:10→21:26)
[2018-11-12] MEDS: METOPROLOL TARTRATE 25 MG TABLET PER TUBE SCH ×2 (09:10→21:27)
[2018-11-13] MEDS: PROPOFOL 1,000 MG/100 ML BOTTLE IV SCH ×3 (00:09→09:12)
[2018-11-13] MEDS: ALBUTEROL/IPRATROPIUM 3 ML NEB RESP TX SCH ×4 (01:09→19:30)
[2018-11-13] MEDS: methylPREDNISolone SOD SUC 40 MG/1 ML VIAL IV SCH ×3 (01:48→17:10)
[2018-11-13] MEDS: INSULIN REGULAR 100 UNIT/ML SUBCUT SCH ×4 (01:48→17:02)
[2018-11-13 04:09] LABS: ABG Base Excess 6.7 MMOL/L (-2.5-2.5); ABG HCO3 30.5 MMOL/L (20-26); ABG PCO2 52.6 MM HG (35-48); ABG PH 7.405 (7.35-7.45); ABG PO2 78.3 MM HG (80-95); ABG TCO2 29.3 MMOL/L (23-27); Allen Test Positive; Pt O2 Delivery Device Ventilator
[2018-11-13 05:04] LABS: Basophils % 0.2 % (0.0-0.8); Hemoglobin 11.1 GM/DL (12.0-16.0); Immature Granulocytes % 0.5 %; Immature Granulocytes Absolute 0.03 #; Lymphocytes # 0.5 10*3/uL (1.4-4.0); Lymphocytes % 8.1 % (21.3-54.2); Mean Corpuscular HGB Conc 32.6 GM/DL (32-36); Mean Corpuscular Volume 82.5 FL (87-102); Mean Platelet Volume 10.5 FL (9.6-12.0); Monocytes % 4.9 % (1.7-12.7); Neutrophils % 86.3 % (38.7-73.9); Platelet Count 181 T/CUMM (130-400); Red Blood Count 4.12 MC/CUMM (3.8-5.5); Red Cell Distribution Width 14.6 % (9.3-17.3); White Blood Count 6.5 T/CUMM (4-12)
[2018-11-13 05:22] LABS: Osmolality,Calculated 306.6 MOS/KG (273-304)
[2018-11-13] MEDS: BUDESONIDE 0.5 MG/2 ML NEB RESP TX SCH ×2 (07:11→19:31)
[2018-11-13] MEDS: METOPROLOL TARTRATE 25 MG TABLET PER TUBE SCH (08:04)
[2018-11-13] MEDS: VANCOMYCIN INJ 2,000 MG in SODIUM CHLORIDE 0.9% 500 ML IV SCH (09:13)
[2018-11-13] MEDS: SACUBITRIL/VALSARTAN 49-51 MG TABLET PO SCH ×2 (09:16→21:14)
[2018-11-13] MEDS: ALLOPURINOL 300 MG TABLET PER TUBE SCH (09:16)
[2018-11-13] MEDS: FAMOTIDINE 20 MG/2 ML VIAL IV SCH ×2 (10:43→21:14)
[2018-11-14] MEDS: ALBUTEROL/IPRATROPIUM 3 ML NEB RESP TX SCH ×4 (00:57→19:15)
[2018-11-14] MEDS: INSULIN REGULAR 100 UNIT/ML SUBCUT SCH ×4 (01:54→18:05)
[2018-11-14] MEDS: methylPREDNISolone SOD SUC 40 MG/1 ML VIAL IV SCH ×3 (01:55→16:40)
[2018-11-14] MEDS: PROPOFOL 1,000 MG/100 ML BOTTLE IV SCH ×5 (02:30→19:50)
[2018-11-14 04:23] LABS: Allen Test Positive; Pt O2 Delivery Device Ventilator
[2018-11-14 04:24] LABS: ABG Base Excess 6.6 MMOL/L (-2.5-2.5); ABG HCO3 30.4 MMOL/L (20-26); ABG Oxygen Saturation 96.9 % (95-100); ABG PCO2 47.8 MM HG (35-48); ABG PH 7.434 (7.35-7.45); ABG PO2 83.9 MM HG (80-95); ABG TCO2 27.9 MMOL/L (23-27)
[2018-11-14 05:04] LABS: Hematocrit 32.1 VOL% (35.7-47.0); Hemoglobin 10.8 GM/DL (12.0-16.0); Immature Granulocytes % 0.7 %; Immature Granulocytes Absolute 0.04 #; Lymphocytes # 0.4 10*3/uL (1.4-4.0); Lymphocytes % 6.9 % (21.3-54.2); Mean Corpuscular HGB Conc 33.6 GM/DL (32-36); Mean Corpuscular Volume 80.3 FL (87-102); Mean Platelet Volume 11.4 FL (9.6-12.0); Neutrophils % 88.4 % (38.7-73.9); Platelet Count 184 T/CUMM (130-400); Red Cell Distribution Width 14.6 % (9.3-17.3); White Blood Count 6.1 T/CUMM (4-12)
[2018-11-14 05:32] LABS: Calcium 8.5 MG/DL (8.5-10.1); Osmolality,Calculated 302.6 MOS/KG (273-304)
[2018-11-14 05:35] LABS: Prealbumin 30.2 MG/DL (20-40)
[2018-11-14] MEDS: BUDESONIDE 0.5 MG/2 ML NEB RESP TX SCH ×2 (07:38→19:15)
[2018-11-14] MEDS: FAMOTIDINE 20 MG/2 ML VIAL IV SCH ×2 (09:10→22:24)
[2018-11-14] MEDS: ALLOPURINOL 300 MG TABLET PER TUBE SCH (09:15)
[2018-11-14] MEDS: SACUBITRIL/VALSARTAN 49-51 MG TABLET PO SCH ×2 (09:15→22:11)
[2018-11-15] MEDS: PROPOFOL 1,000 MG/100 ML BOTTLE IV SCH ×6 (00:23→19:59)
[2018-11-15] MEDS: INSULIN REGULAR 100 UNIT/ML SUBCUT SCH ×5 (00:28→23:51)
[2018-11-15] MEDS: ALBUTEROL/IPRATROPIUM 3 ML NEB RESP TX SCH ×4 (00:30→20:11)
[2018-11-15] MEDS: methylPREDNISolone SOD SUC 40 MG/1 ML VIAL IV SCH ×3 (02:30→18:46)
[2018-11-15 04:00] LABS: ABG Base Excess 6.3 MMOL/L (-2.5-2.5); ABG HCO3 30.2 MMOL/L (20-26); ABG Oxygen Saturation 97.4 % (95-100); ABG PCO2 51.1 MM HG (35-48); ABG PH 7.409 (7.35-7.45); ABG PO2 89.3 MM HG (80-95); ABG TCO2 28.9 MMOL/L (23-27); Allen Test Positive; Pt O2 Delivery Device Ventilator
[2018-11-15 05:27] LABS: Hematocrit 34.4 VOL% (35.7-47.0); Hemoglobin 11.3 GM/DL (12.0-16.0); Immature Granulocytes % 0.5 %; Immature Granulocytes Absolute 0.03 #; Lymphocytes # 0.5 10*3/uL (1.4-4.0); Mean Corpuscular HGB Conc 32.8 GM/DL (32-36); Mean Corpuscular Volume 81.1 FL (87-102); Mean Platelet Volume 10.9 FL (9.6-12.0); Neutrophils % 85.5 % (38.7-73.9); Platelet Count 180 T/CUMM (130-400); Red Blood Count 4.24 MC/CUMM (3.8-5.5); Red Cell Distribution Width 14.6 % (9.3-17.3)
[2018-11-15 06:00] LABS: Calcium 8.9 MG/DL (8.5-10.1); Osmolality,Calculated 296.7 MOS/KG (273-304)
[2018-11-15] MEDS ORDERED: MIDAZOLAM 2 MG/2 ML VIAL ONE (06:29)
[2018-11-15] MEDS ORDERED: MIDAZOLAM 2 MG/2 ML VIAL IV ONE (06:30)
[2018-11-15] MEDS: BUDESONIDE 0.5 MG/2 ML NEB RESP TX SCH ×2 (07:20→20:11)
[2018-11-15] MEDS: FAMOTIDINE 20 MG/2 ML VIAL IV SCH ×2 (09:32→21:41)
[2018-11-15] MEDS: SACUBITRIL/VALSARTAN 49-51 MG TABLET PO SCH ×2 (09:32→21:41)
[2018-11-15] MEDS: ALLOPURINOL 300 MG TABLET PER TUBE SCH (09:32)
[2018-11-15 21:10] VITALS: BP 105/67
[2018-11-16] MEDS: ALBUTEROL/IPRATROPIUM 3 ML NEB RESP TX SCH ×2 (00:29→06:47)
[2018-11-16] MEDS: PROPOFOL 1,000 MG/100 ML BOTTLE IV SCH ×2 (02:23→08:08)
[2018-11-16] MEDS: methylPREDNISolone SOD SUC 40 MG/1 ML VIAL IV SCH ×2 (02:24→08:49)
[2018-11-16 04:23] LABS: ABG Base Excess 4.3 MMOL/L (-2.5-2.5); ABG HCO3 28.3 MMOL/L (20-26); ABG Oxygen Saturation 97.2 % (95-100); ABG PCO2 45.9 MM HG (35-48); ABG PH 7.417 (7.35-7.45); ABG PO2 90.2 MM HG (80-95); ABG TCO2 26.2 MMOL/L (23-27); Allen Test Positive; Pt O2 Delivery Device Ventilator
[2018-11-16 04:48] LABS: Hematocrit 33.7 VOL% (35.7-47.0); Hemoglobin 11.2 GM/DL (12.0-16.0); Immature Granulocytes % 0.4 %; Immature Granulocytes Absolute 0.04 #; Lymphocytes # 0.2 10*3/uL (1.4-4.0); Lymphocytes % 1.9 % (21.3-54.2); Mean Corpuscular HGB Conc 33.2 GM/DL (32-36); Mean Platelet Volume 11.7 FL (9.6-12.0); Monocytes % 3.2 % (1.7-12.7); Neutrophils % 94.5 % (38.7-73.9); Platelet Count 185 T/CUMM (130-400); Red Blood Count 4.16 MC/CUMM (3.8-5.5); Red Cell Distribution Width 14.7 % (9.3-17.3); White Blood Count 10.9 T/CUMM (4-12)
[2018-11-16 05:16] LABS: Calcium 8.9 MG/DL (8.5-10.1); Osmolality,Calculated 301.8 MOS/KG (273-304)
[2018-11-16 05:30] LABS: Band Neutrophils 2 % (0-10); Lymphocytes 1 % (20-55); Segmented Neutrophils 96 % (50-85); Total Cells Counted 100
[2018-11-16 05:31] LABS: Anisocytosis 1+; Hypochromasia 1+; Platelet Estimate Adequate; Target Cells 1+
[2018-11-16] MEDS: BUDESONIDE 0.5 MG/2 ML NEB RESP TX SCH (06:47)
[2018-11-16] MEDS: INSULIN REGULAR 100 UNIT/ML SUBCUT SCH (07:03)
[2018-11-16] MEDS: ALLOPURINOL 300 MG TABLET PER TUBE SCH (08:48)
[2018-11-16] MEDS: SACUBITRIL/VALSARTAN 49-51 MG TABLET PO SCH (08:48)
[2018-11-16] MEDS: FAMOTIDINE 20 MG/2 ML VIAL IV SCH (08:49)
[2018-11-16] MEDS: APIXABAN 5 MG TABLET PER TUBE SCH (08:49)
[2018-11-16] MEDS ORDERED: INSULIN GLARGINE 100 UNIT/ML SUBCUT SCH (09:00)
[2018-11-16] MEDS ORDERED: methylPREDNISolone SOD SUC 40 MG/1 ML VIAL IV SCH (09:01)
== END 2018-11-16 10:49 | DRG 4 ==
LOC: N.ED 04:43 → SUATTDRO 07:29 → N.EDINP 07:56 → N.ICU 08:23
PROVIDERS: ADMIT Internal Medicine; ATTEND Internal Medicine